=== PATIENT | female | born 1985 | race Caucasian/White ===

== ENCOUNTER 2019-12-08 04:56 | Inpatient (IN) | payer BC ==
--- NOTE | 2019-12-02 15:21 | PCM.LDHP ---
L&D History of Present Illness - General Date of Service: 12/02/19 Admit Problem/Dx: Admission Diagnosis/Problem Admission Diagnosis/Problem Source of Information: Patient History Limitations: Reports: No Limitations - History of Present Illness Introduction:: Marta Zhang is a 34-year-old -0-0-2 at 38 weeks 2 days (MANINDER 12/14/2019) by certain LMP of 03/09/2019 consistent with a 6-week ultrasound who presents for preoperative appointment for her scheduled section on 12/08/2019 when she will be 39 weeks 1 day. Patient has had ongoing abdominal distention throughout the and has been overall stable. She has had some decreased appetite since last evening with ongoing contractions overnight. She states that last evening on 12/01/2019 the contractions were stronger and occurring about 2 to 3/h and getting strong enough to the point of causing emesis. She denies any abnormal vaginal discharge or vaginal bleeding. Reports good movement. Present Illness Comments:: Marta Zhang is a 34-year-old -0-0-2 at 38 weeks 2 days (MANINDER 12/14/2019) by certain LMP of 03/09/2019 consistent with a 6-week ultrasound who presents for preoperative appointment for her scheduled section on 12/08/2019 when she will be 39 weeks 1 day. She has had routine care with Dr. Barrett starting at 6 weeks gestational age. Her has been complicated by significant abdominal distention with notation of significant distention starting at around 24 to 26 weeks gestational age. She was seen by Dr. Mark joseph, general surgeon, on 10/06/2019 without significant concerns at that time and thoughts that she was having a partial intestinal obstruction. She has been able to tolerate a regular diet without any significant nausea or vomiting with this suspected partial obstruction in place. She has had mild anemia with her most recent hemoglobin being 9.7 on 10/13/2019. She started taking iron supplementation at that time. She feels like this is helping with some of her shortness of breath and lightheaded episodes. Her is complicated by: * History of section x2 with previous colectomy and appendectomy. Patient desires repeat section and was advised to have section by her team that performed the colectomy. * Advanced maternal age with normal [place] genetic screening on 05/26/2019. The genetic screening test was low risk for trisomy 13, 18 and 21 without any sex chromosomal abnormalities. It was a female on testing. 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 Patient has had ongoing abdominal distention starting around 24 to 26 weeks ge stational age and was seen by Dr. Laird, general surgeon, who felt that there was a likely partial obstruction at that time. * Mild anemia with hemoglobin of 9.7 most recently on 10/13/2019. Patient taking iron supplementation for this. * Infant large for gestational age with infant weighing 2882 g (6 pounds 6 ounces) (91st percentile) on most recent growth ultrasound on 11/05/2019. No evidence of gestational diabetes with normal 1 hour glucose tolerance test. SALES AND MARKETING ADMINISTRATOR history G1: 05/27/2011, 39 weeks, section due to history of intestinal surgery, male , 7 pounds 6 ounces G2: 02/06/2013, 39 weeks, section due to history of intestinal surgery and previous section, female infant, 7 pounds 8 ounces G3: Current labs Blood type: O+ Antibody screen: Negative First trimester hematocrit/hemoglobin: 39.5%/13.2 on 05/19/2019 Platelets: 258 on 05/19/2019 Urine culture: Mixed brian suggestive of contamination Rubella status: Immune Hepatitis B surface antigen: Negative RPR: Negative HIV: Negative Gonorrhea: Negative Chlamydia: Negative Genetic testing: Normal [facility] genetic testing with low risk for trisomy 13, 18 and 21. Normal sex chromosomes and female infant on testing. Anatomy ultrasound: Normal anatomy ultrasound, anterior placenta, large for gestational age with weight in the 91st percentile on most recent ultrasound on 11/05/2019 One hour glucose tolerance test: 93 Second trimester hematocrit/hemoglobin: 33.9%/10.5 on 09/18/2019 Platelets: 271 on 09/18/2019 Third trimester hematocrit/hemoglobin: 31.8%/9.7 on 11/12/2019 Platelets: 230 on 11/12/2019 GBS status: Negative - Related Data Allergies/Adverse Reactions: Allergies Allergy/AdvReac Type Severity Reaction Status Date / Time bee pollen [Bee Pollen] Allergy Hives Verified 11/30/19 20:36 Home Medications: Home Meds Vits #93/Iron Fum/FA [ Formula Tablet] 11/30/19 [History] cephALEXin [Keflex] 250 mg PO 11/30/19 [History] Past Medical History Gastrointestinal History: Reports: Other (See Below) Other Gastrointestinal History: 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, significant abdominal distention during this SALES AND MARKETING ADMINISTRATOR History: Reports: : 3 Para: 2 - Past Surgical History GI Surgical History: Reports: Hernia, Abdominal, Other (See Below) (Total col ectomy and appendectomy) Female Surgical History: Reports: Breast Implant, Breast Reduction, Section (x2) Social & Family History - Tobacco Use Smoking Status *Q: Never Smoker Tobacco Use Within Last Twelve Months: No - Tobacco Core Measures Tobacco Use/Smoking Within Last 30 Days: No Smokeless Tobacco Use in Last 30 Days: No - Alcohol Use Alcohol Use History: No - Recreational Drug Use Recreational Drug Use: No Drug Use in Last 12 Months: No - Living Situation & Occupation Living situation: Reports: , with Spouse, with Family Occupation: Employed H&P Review of Systems - Review of Systems: Review Of Systems: See Below General: Denies: Fever, Chills, Malaise, Weakness, Fatigue HEENT: Denies: Headaches, Rhinitis, Post Nasal Drip, Sinus Congestion, Sore Throat, Visual Changes Pulmonary: Denies: Shortness of Breath, Wheezing, Pleuritic Chest Pain, Cough Cardiovascular: Denies: Chest Pain, Palpitations, Dyspnea on Exertion, Orthopnea Gastrointestinal: Reports: Diarrhea, Distension. Denies: Abdominal Pain, Constipation, Nausea, Vomiting Genitourinary: Denies: Dysuria, Frequency, Burning, Pain, Urgency Musculoskeletal: Reports: Back Pain Skin: Denies: Rash, Lesions Psychiatric: Denies: Depression, Anxiety Neurological: Denies: Headache, Syncope Hematologic/Lymphatic: Reports: Anemia L&D Exam - Exam Exam: See Below - OB Specific Fundal Height In cm: 38 Movement: Active Heart Tones: Present Heart Tones per Min: 130 - Schulte Score Schulte Score Cervix Position: Anterior Schulte Score Consistency: Soft Schulte Score Effacement: 51-70% (50%) Schulte Score Dilation: 1-2 cm (1 cm) Schulte Score Infant's Station: -3 Schulte Score Total: 7 - Exam General: Alert, Oriented HEENT: Conjunctiva Clear, EOMI Neck: Supple, Trachea Midline Lungs: Clear to Auscultation, Normal Respiratory Effort Cardiovascular: Regular Rate, Regular Rhythm GI/Abdominal Exam: Soft, Non-Tender, Distended, Other (Gravid). No: Guarding, Rigid, Rebound Rectal Exam: Hemorrhoids Genitourinary: Normal external exam Back Exam: Normal Inspection, Full Range of Motion Extremities: Normal Inspection, No Pedal Edema Skin: Warm, Dry, Intact Psychiatric: Alert, Normal Affect, Normal Mood - Problem List (1) 39 weeks gestation of SNOMED Code(s): 56767775 ICD Code: Z3A.39 - 39 WEEKS GESTATION OF Status: Acute (2) History of section SNOMED Code(s): 825694387 ICD Code: Z98.891 - HISTORY OF UTERINE SCAR FROM PREVIOUS SURGERY Status: Acute (3) Abdominal distension SNOMED Code(s): 60316588 ICD Code: R14.0 - ABDOMINAL DISTENSION (GASEOUS) Status: Acute (4) Advanced maternal age in multigravida SNOMED Code(s): 765993411 ICD Code: O09.529 - SUPERVISION OF ELDERLY MULTIGRAVIDA, UNSPECIFIED TRIMESTER Status: Acute (5) Anemia SNOMED Code(s): 914483989 ICD Code: D64.9 - ANEMIA, UNSPECIFIED Status: Acute Problem List Initiated/Reviewed/Updated: Yes Assessment/Plan Comment:: Admit to inpatient after section NST prior to section Place IV and have Lactated Ringer's at 125 ml/hr SCDs for DVT prophylaxis Nothing by mouth Activity as tolerated Plan for spinal injection for anesthesia CBC, RPR and type and screen prior to surgery Plans to breast-feed after delivery Plan for Ancef 2 g IV for antibiotic prophylaxis prior to surgery Leo Barrett M.D. 3:30 PM 12/02/2019
[2019-12-08] MEDS ORDERED: Sodium Chloride 0.9% 10 ML Syringe FLUSH PRN (05:00)
[2019-12-08] MEDS: Lactated Ringers 1,000 ML IV SCH ×2 (05:30→06:17)
[2019-12-08] MEDS ORDERED: Metoclopramide 10 MG/2 ML SDV ONE (06:11)
[2019-12-08] MEDS ORDERED: Citric Acid/Sodium Citrate Solution 30 ML Cup ONE (06:12)
[2019-12-08] MEDS ORDERED: Lactated Ringers 1,000 ML ONE ×2 (06:12→08:35)
[2019-12-08] MEDS ORDERED: Citric Acid/Sodium Citrate Solution 30 ML Cup PO ONE (06:30)
[2019-12-08] MEDS ORDERED: Metoclopramide 10 MG/2 ML SDV IVPUSH ONE (06:30)
[2019-12-08] MEDS ORDERED: ceFAZolin 2 GM in Premix Bag 1 BAG IV ONE (07:00)
[2019-12-08] MEDS ORDERED: Oxytocin/Lactated Ringers 10 UNIT/1,000 ML BAG IV SCH ×2 (07:00→10:07)
--- NOTE | 2019-12-08 07:08 | PCM.PREANE ---
Preanesthetic Assessment - Anesthesia/Transfusion/Family Hx Anesthesia History: Prior Anesthesia Without Reaction Family History of Anesthesia Reaction: No Transfusion History: No Prior Transfusion(s) - Review of Systems General: No Symptoms Pulmonary: No Symptoms Cardiovascular: No Symptoms Gastrointestinal: Other (uses tums during ) Neurological: No Symptoms Other: Reports: None - Physical Assessment NPO Status Date: 12/07/19 NPO Status Time: 22:30 Vital Signs: Last Vital Signs Temp 36.7 C 12/08/19 05:12 Pulse 103 H 12/08/19 05:12 Resp 15 12/08/19 05:12 BP 107/71 12/08/19 05:12 Pulse Ox 98 12/08/19 05:12 Height: 1.68 m Weight: 80.966 kg ASA Class: 2 Mental Status: Alert & Oriented x3 Airway Class: Mallampati = 2 Dentition: Reports: Normal Dentition Thyro-Mental Finger Breadths: 3 Mouth Opening Finger Breadths: 3 ROM/Head Extension: Full Lungs: Clear to Auscultation, Normal Respiratory Effort Cardiovascular: Regular Rate, Regular Rhythm - Lab Values: Laboratory Last Values WBC 7.07 K/mm3 (3.98-10.04) 12/08/19 05:19 RBC 4.06 M/mm3 (3.98-5.22) 12/08/19 05:19 Hgb 9.8 gm/dl (11.2-15.7) L 12/08/19 05:19 Hct 31.8 % (34.1-44.9) L 12/08/19 05:19 MCV 78.3 fl (79.4-94.8) L 12/08/19 05:19 MCH 24.1 pg (25.6-32.2) L 12/08/19 05:19 MCHC 30.8 g/dl (32.2-35.5) L 12/08/19 05:19 RDW Std Deviation 47.2 fL (36.4-46.3) H 12/08/19 05:19 Plt Count 213 K/mm3 (182-369) 12/08/19 05:19 MPV 11.7 fl (9.4-12.3) 12/08/19 05:19 Neut % (Auto) 65.9 % (34.0-71.1) 12/08/19 05:19 Lymph % (Auto) 24.3 % (19.3-51.7) 12/08/19 05:19 [place] % (Auto) 7.8 % (4.7-12.5) 12/08/19 05:19 Eos % (Auto) 1.0 (0.7-5.8) 12/08/19 05:19 Baso % (Auto) 0.3 % (0.1-1.2) 12/08/19 05:19 Neut # (Auto) 4.66 K/mm3 (1.56-6.13) 12/08/19 05:19 Lymph # (Auto) 1.72 K/mm3 (1.18-3.74) 12/08/19 05:19 [place] # (Auto) 0.55 K/mm3 (0.24-0.36) H 12/08/19 05:19 Eos # (Auto) 0.07 K/mm3 (0.04-0.36) 12/08/19 05:19 Baso # (Auto) 0.02 K/mm3 (0.01-0.08) 12/08/19 05:19 COVID-19 (HUGO) Negative (NEGATIVE) 12/08/19 05:20 - Allergies Allergies/Adverse Reactions: Allergies Allergy/AdvReac Type Severity Reaction Status Date / Time bee venom protein (honey bee) Allergy Swelling Verified 12/08/19 05:03 - Blood Blood Available: No Product(s) Available: None - Anesthesia Plan Pre-Op Medication Ordered: None - Acknowledgements Anesthesia Type Planned: Spinal Pt an Appropriate Candidate for the Planned Anesthesia: Yes Alternatives and Risks of Anesthesia Discussed w Pt/Guardian: Yes Pt/Guardian Understands and Agrees with Anesthesia Plan: Yes PreAnesthesia Questionnaire Gastrointestinal History: Reports: Other (See Below) Other Gastrointestinal History: 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, significant abdominal distention during this 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: Hematologic History: Reports: Anemia - Infectious Disease History Infectious Disease History: Reports: None - Past Surgical History GI Surgical History: Reports: Hernia, Abdominal, Other (See Below) Female Surgical History: Reports: Breast Implant, Breast Reduction, Section - SUBSTANCE USE Smoking Status *Q: Never Smoker Tobacco Use Within Last Twelve Months: No Recreational Drug Use History: No - HOME MEDS Home Medications: Home Meds Vits #93/Iron Fum/FA [ Formula Tablet] 11/30/19 [History] - CURRENT (IN HOUSE) MEDS Current Meds: Current Medications Cefazolin Sodium/Dextrose 2 gm (/ Premix) 50 mls @ 100 mls/hr IV ONETIME ONE Stop: 12/08/19 07:29 Oxytocin/Lactated Ringer's (Pitocin In Lr 10 Units/1,000 Ml) 10 unit in 1,000 mls @ 100 mls/hr IV ASDIRECTED CATY; Protocol Lactated Ringer's (Ringers, Lactated) 1,000 mls @ 125 mls/hr IV ASDIRECTED CATY Last Admin: 12/08/19 06:17 Dose: 900 mls/hr Documented by: Sodium Chloride (Saline Flush) 10 ml FLUSH ASDIRECTED PRN PRN Reason: Keep Vein Open Discontinued Medications Citric Acid/Sodium Citrate (Bicitra Solution) 30 ml PO ONETIME ONE Stop: 12/08/19 06:31 Last Admin: 12/08/19 06:56 Dose: 30 ml Documented by: Citric Acid/Sodium Citrate (Bicitra Solution) Confirm Administered Dose 30 ml .ROUTE .STK-MED ONE Stop: 12/08/19 06:13 Last Admin: 12/08/19 06:54 Dose: Not Given Documented by: Lactated Ringer's (Ringers, Lactated) Confirm Administered Dose 1,000 mls @ as directed .ROUTE .STK-MED ONE Stop: 12/08/19 06:13 Last Admin: 12/08/19 06:54 Dose: Not Given Documented by: Metoclopramide HCl (Reglan) 10 mg IVPUSH ONETIME ONE Stop: 12/08/19 06:31 Last Admin: 12/08/19 06:56 Dose: 10 mg Documented by: Metoclopramide HCl (Reglan) Confirm Administered Dose 10 mg .ROUTE .STK-MED ONE Stop: 12/08/19 06:12 Last Admin: 12/08/19 06:54 Dose: Not Given Documented by:
[2019-12-08] MEDS ORDERED: Ondansetron 4 MG/2 ML SDV ONE (07:11)
[2019-12-08] MEDS ORDERED: Morphine PF 1 MG/ML Amp ONE (07:11)
[2019-12-08] MEDS ORDERED: ceFAZolin 1 GM Vial ONE (07:11)
[2019-12-08] MEDS ORDERED: Oxytocin 10 Units/1 ML SDV ONE (07:11)
[2019-12-08] MEDS ORDERED: Bupivacaine 0.5% 30 ML SDV ONE (07:14)
[2019-12-08] MEDS ORDERED: Ketorolac 30 MG/ML SDV ONE (07:56)
[2019-12-08] MEDS ORDERED: fentaNYL 100 MCG/2 ML SDV IVPUSH PRN (08:48)
[2019-12-08] MEDS ORDERED: diphenhydrAMINE 50 MG/ML SDV IVPUSH PRN ×2 (08:48→10:07)
[2019-12-08] MEDS ORDERED: Ondansetron 4 MG/2 ML SDV IVPUSH PRN (08:48)
--- NOTE | 2019-12-08 09:05 | PCM.POSTAN ---
POST ANESTHESIA ASSESSMENT - MENTAL STATUS Mental Status: Alert, Oriented - VITAL SIGNS Vital Signs: Last Vital Signs Temp 36.7 C 12/08/19 05:12 Pulse 103 H 12/08/19 05:12 Resp 15 12/08/19 05:12 BP 107/71 12/08/19 05:12 Pulse Ox 98 12/08/19 05:12 - RESPIRATORY Respiratory Status: Respiratory Rate WNL, Airway Patent, O2 Saturation Stable - CARDIOVASCULAR CV Status: Pulse Rate WNL, Blood Pressure Stable - GASTROINTESTINAL GI Status: No Symptoms - PAIN Pain Score: 0 - POST OP HYDRATION Hydration Status: Adequate & Stable
[2019-12-08] MEDS ORDERED: Ondansetron 4 MG Tab.DIS PO PRN (10:07)
[2019-12-08] MEDS ORDERED: Dextrose 5%-Lactated Ringers 1,000 ML IV SCH (10:07)
[2019-12-08] MEDS ORDERED: Acetaminophen/oxyCODONE 325-5 MG Tab PO PRN (10:07)
[2019-12-08] MEDS ORDERED: Magnesium Hydroxide 400 MG/5 ML Susp 30 ML Cup PO PRN (10:07)
[2019-12-08] MEDS ORDERED: Naloxone 0.4 MG/ML SDV IVPUSH PRN (10:07)
[2019-12-08] MEDS ORDERED: ePHEDrine 50 MG/ML SDV IVPUSH PRN (10:07)
--- NOTE | 2019-12-08 10:07 | PCM.OPNOTE ---
- General Post-Op/Procedure Note Date of Surgery/Procedure: 12/08/19 Operative Procedure(s): Repeat section Findings: Live female infant delivered in vertex presentation at 08:21. Apgars of 8 and 9. weight of 3800 g (8 pounds 6.0 ounces). length of 21 inches. Grossly normal-appearing uterus, bilateral fallopian tubes and ovaries. Significantly distended visualized portions of the intestines. No adhesions to the uterus. Pre Op Diagnosis: 39 weeks gestational age, previous section x2, advanced maternal age and abdominal distention Post-Op Diagnosis: Same Anesthesia Technique: Spinal Primary Surgeon: Leo Barrett Anesthesia Provider: Princess Maynard Carbon Plant Grinder: Herb Hinton Carbon Plant Grinder: Mel Adames ([place] student) Reason Carbon Plant Grinder Was Necessary: Patient safety and reduction of morbidity and mortality Role of Carbon Plant Grinder: Retraction for visualization and assistance with extraction of during the section. Pathology: None Fluid Replacement, Intraop: 1,800 Output, Urine Amount: 125 EBL in mLs: 600 Complications: None Condition: Good Free Text/Narrative:: Intake & Output 12/07/19 12/08/19 12/08/19 22:59 06:59 14:59 Intake Total 300 Output Total 225 Balance 75 Procedure in Detail: The patient was seen in room #5 and the risks, benefits and complications were discussed with the patient. The patient desired to proceed with section and appropriate consents were reviewed. The patient was taken to operating room #1. A Time Out was held and the patient was identified using 2 identifiers and the procedure was confirmed. The patient was given spinal anesthesia and was placed in dorsal supine position with leftward tilt. She was given 2 g Ancef for antibiotic prophylaxis. Patient had a Rangel catheter placed without difficulty. The patient was prepped and draped in the usual sterile manner. The abdominal skin was tested and the spinal anesthesia was found to be adequate. The previous skin incision was marked and was injected with 0.5% marcaine for local anesthesia. A Pfannenstiel skin incision was made and carried down through the subcutaneous tissue to the fascia with the scapel. The fascia was nicked in the midline using a scalpel and the fascial incision was extended transversely with Ramon scissors. The inferior aspect of the fascia was grasped with Jani clamps and tented upwards. The fascia was from the underlying rectus muscle sharply with Ramon scissors. Attention was then turned to the superior aspect of the fascia and was grasped using Jani clamps and tented upwards. The underlying rectus muscle was dissected off sharply with Ramon scissors. The peritoneum was identified and entered sharply after careful dissection to ensure that there was no underlying bowel during entry. The utero-vesical peritoneal reflection was identified and the peritoneum was incised with [place] scissors and transversely extended. The bladder blade was inserted and the lower uterine segment was identified. A low transverse uterine incision was made sharply with a scalpel and extended laterally bluntly. The 's head was brought to the uterine incision, the bladder blade was removed and the infant was attempted to be delivered. Initial attempts were unsuccessful and a mushroom cup vacuum extractor was applied to the 's head. Suction was applied to approximately 550 mmHg and gentle traction was applied. There were 2 pop offs. At this time the infant's head was brought down to a low enough level that it was able to be delivered with out use of the vacuum extractor. The vacuum extractor was applied for a total of 30 seconds. On 12/08/2019 a live female infant was delivered in vertex position at 08:21, wt of 3800 grams, 8 pounds and 6.0 ounces. APGARS were 8 & 9. The nose and mouth were suctioned with bulb suction, the cord was doubly clamped and cut and was transferred to the awaiting endless track vehicle mechanic. The placenta was removed intact and appeared normal with a three vessel cord. The uterus was exteriorized and the uterine cavity was cleaned using lap sponges. The hysterotomy was closed with a running locked suture of 0-Vicryl. A second suture of 0-Vicryl was used to imbricate the hysterotomy. The hysterotomy was hemostatic. The uterus, tubes and ovaries appeared overall normal without any adhesions from the intestines to the uterus. The uterus was then returned into the abdominal cavity. The hysterotomy was noted to remain hemostatic inside the abdominal cavity. The fascia was noted to be hemostatic and the fascia was then reapproximated with running sutures of 0 PDS. The skin was reapproximated using 4-0 Monocryl and Steri-strips were applied over the incision. Instrument, sponge, and needle counts were correct prior to the abdominal closure and at the conclusion of the case.
[2019-12-08] MEDS: Acetaminophen/oxyCODONE 325-5 MG Tab PO PRN (11:01)
[2019-12-08] MEDS: Ketorolac 30 MG/ML SDV IVPUSH SCH ×2 (14:56→23:10)
[2019-12-09] MEDS: Docusate Sodium 100 MG Cap PO SCH ×4 (01:58→21:11)
[2019-12-09] MEDS ORDERED: Ketorolac 30 MG/ML SDV ONE (07:56)
[2019-12-09] MEDS: Prenatal Multivitamin with Calcium/Folic Acid/Iron Tab PO SCH (08:03)
[2019-12-09] MEDS: Ketorolac 30 MG/ML SDV IVPUSH SCH (08:03)
[2019-12-09] MEDS: Ferrous Sulfate 324 MG Tab.EC PO SCH (08:04)
--- NOTE | 2019-12-09 10:37 | PCM.SN.2 ---
- Free Text/Narrative Note: Post Operative Progress Note POD #1 Subjective: Doing well overall. Ambulating without difficulty. Lochia minimal. Rangel removed this morning and urinating without difficulty. Not passing flatus at this time but feels like her intestines are moving more. Reports that she is feeling and seeing more movement of her intestines across the upper abdomen. Does have some occasional right upper quadrant pain and tenderness that feels like postop gas pain after her laparoscopy. It will improve with massage. Tolerating regular diet without nausea or vomiting. Pain controlled with oral medications. Breast-feeding with minimal difficulty. Objective: Vitals: Vital Signs - 24 hr 12/08/19 12/08/19 12/08/19 11:01 11:32 11:36 Temperature Pulse, 81 92 89 Peripheral Respiratory Rate Blood Pressure 108/76 84/67 L 123/74 O2 Sat by Pulse 99 98 99 Oximetry 12/08/19 12/08/19 12/08/19 12:02 12:03 13:01 Temperature 36.6 C 36.6 C Pulse, 93 96 Peripheral Respiratory 16 14 Rate Blood Pressure 96/62 96/62 107/69 O2 Sat by Pulse 99 98 Oximetry 12/08/19 12/08/19 12/08/19 13:02 14:01 14:32 Temperature 36.6 C Pulse, 87 85 86 Peripheral Respiratory 14 Rate Blood Pressure 107/69 99/64 O2 Sat by Pulse 98 98 100 Oximetry 12/08/19 12/08/19 12/08/19 16:01 16:02 19:37 Temperature 36.6 C Pulse, 83 89 87 Peripheral Respiratory 14 Rate Blood Pressure 111/71 O2 Sat by Pulse 98 100 98 Oximetry 12/08/19 12/09/19 12/09/19 19:39 00:00 00:01 Temperature 36.7 C 36.7 C Pulse, 83 91 91 Peripheral Respiratory 16 16 Rate Blood Pressure 104/72 106/70 O2 Sat by Pulse 99 98 98 Oximetry 12/09/19 12/09/19 03:04 03:05 Temperature 36.6 C Pulse, 82 84 Peripheral Respiratory 18 Rate Blood Pressure 105/74 O2 Sat by Pulse 100 100 Oximetry Physical Exam General: Alert and oriented, no acute distress Lungs: Clear to auscultation bilaterally Heart: Regular rate and rhythm Abdomen: Soft, minimal appropriate tenderness, moderately distended, fundus midline, nontender and at the umbilicus Incision: Clean, dry and intact, no erythema, bleeding or drainage with Steri- Strips in place Extremities: No edema Labs: Laboratory Tests 12/08/19 12/08/19 12/08/19 Range/Units 05:19 05:19 05:19 WBC 7.07 (3.98-10.04) K/mm3 RBC 4.06 (3.98-5.22) M/mm3 Hgb 9.8 L (11.2-15.7) gm/dl Hct 31.8 L (34.1-44.9) % MCV 78.3 L (79.4-94.8) fl MCH 24.1 L (25.6-32.2) pg MCHC 30.8 L (32.2-35.5) g/dl RDW Std Deviation 47.2 H (36.4-46.3) fL Plt Count 213 (182-369) K/mm3 MPV 11.7 (9.4-12.3) fl Neut % (Auto) 65.9 (34.0-71.1) % Lymph % (Auto) 24.3 (19.3-51.7) % [place] % (Auto) 7.8 (4.7-12.5) % Eos % (Auto) 1.0 (0.7-5.8) Baso % (Auto) 0.3 (0.1-1.2) % Neut # (Auto) 4.66 (1.56-6.13) K/mm3 Lymph # (Auto) 1.72 (1.18-3.74) K/mm3 [place] # (Auto) 0.55 H (0.24-0.36) K/mm3 Eos # (Auto) 0.07 (0.04-0.36) K/mm3 Baso # (Auto) 0.02 (0.01-0.08) K/mm3 Manual Slide Review RPR Non-reactive (NONREACTIVE) COVID-19 (HUGO) (NEGATIVE) Blood Type O POSITIVE Gel Antibody Screen Negative 12/08/19 12/08/19 12/09/19 Range/Units 05:20 15:10 06:15 WBC 11.04 H 9.73 (3.98-10.04) K/mm3 RBC 3.77 L 3.68 L (3.98-5.22) M/mm3 Hgb 8.9 L 8.7 L (11.2-15.7) gm/dl Hct 29.7 L 29.2 L (34.1-44.9) % MCV 78.8 L 79.3 L (79.4-94.8) fl MCH 23.6 L 23.6 L (25.6-32.2) pg MCHC 30.0 L 29.8 L (32.2-35.5) g/dl RDW Std Deviation 47.2 H 47.1 H (36.4-46.3) fL Plt Count 201 195 (182-369) K/mm3 MPV 11.9 11.5 (9.4-12.3) fl Neut % (Auto) 80.6 H 79.1 H (34.0-71.1) % Lymph % (Auto) 11.1 L 13.1 L (19.3-51.7) % [place] % (Auto) 7.2 6.5 (4.7-12.5) % Eos % (Auto) 0.5 L 0.7 (0.7-5.8) Baso % (Auto) 0.1 0.2 (0.1-1.2) % Neut # (Auto) 8.91 H 7.70 H (1.56-6.13) K/mm3 Lymph # (Auto) 1.23 1.27 (1.18-3.74) K/mm3 [place] # (Auto) 0.79 H 0.63 H (0.24-0.36) K/mm3 Eos # (Auto) 0.05 0.07 (0.04-0.36) K/mm3 Baso # (Auto) 0.01 0.02 (0.01-0.08) K/mm3 Manual Slide Review Abnormal smear RPR (NONREACTIVE) COVID-19 (HUGO) Negative (NEGATIVE) Blood Type Gel Antibody Screen ASSESSMENT: 34-year-old female -0-0-3 s/p repeat section POD #1 for history of section, complicated by history of section x2, advanced maternal age in multigravida, anemia and abdominal distention PLAN: Doing well Breast-feeding with minimal difficulty. Assist as needed Incision healing well. Continue to keep clean and dry. Lochia minimal. Continue to monitor for appropriate lochia. Continue routine post-operative care Continue simethicone and Colace for bowel motility and to help with gas pain and distention Continue vitamin and iron supplementation once daily with anemia with hemoglobin of 8.7 this morning. Do not feel that patient will need blood transfusion at this time. Anticipate discharge home tomorrow if she is able to pass flatus and meets other postoperative milestones Leo Barrett MD 10:36 AM 12/09/2019
[2019-12-09] MEDS: Acetaminophen 325 MG Tab PO PRN (10:52)
[2019-12-09] MEDS: Simethicone 80 MG Tab.Chew PO PRN (13:10)
--- NOTE | 2019-12-09 13:18 | PCM48HPAN ---
Post Anesthesia Note - EVALUATION WITHIN 48HRS OF ANESTHETIC Vital Signs in Normal Range: Yes Patient Participated in Evaluation: Yes Respiratory Function Stable: Yes Airway Patent: Yes Cardiovascular Function Stable: Yes Hydration Status Stable: Yes Pain Control Satisfactory: Yes Nausea and Vomiting Control Satisfactory: Yes Mental Status Recovered: Yes Vital Signs: Last Vital Signs Temp 36.8 C 12/09/19 08:04 Pulse 92 12/09/19 08:04 Resp 18 12/09/19 03:04 BP 102/70 12/09/19 08:04 Pulse Ox 98 12/09/19 08:04
[2019-12-09] MEDS: Acetaminophen/oxyCODONE 325-5 MG Tab PO PRN (15:34)
[2019-12-09] MEDS: Ibuprofen 600 MG Tab PO PRN (20:26)
[2019-12-10] MEDS: Acetaminophen 325 MG Tab PO PRN ×2 (00:54→08:52)
[2019-12-10] MEDS: Ibuprofen 600 MG Tab PO PRN (04:55)
[2019-12-10] MEDS: Simethicone 80 MG Tab.Chew PO PRN (06:02)
--- NOTE | 2019-12-10 08:23 | PCM.SN.2 ---
- Free Text/Narrative Note: Post Operative Progress Note POD #2 Subjective: Doing well overall. Ambulating without difficulty. Lochia minimal. Voiding without difficulty. Reports that she is passing flatus without difficulty. Feels like she is having increased rectal pressure like she is about to have a bowel movement but has not passed any stool at this time. Tolerating regular diet without nausea or vomiting. Pain controlled with oral medications and used only 1 Percocet last evening to get on top of her pain. She has been using Tylenol and ibuprofen throughout the evening and this morning to control her pain and this has been working well for her. Breast-feeding with minimal difficulty. Objective: Vitals: Vital Signs - 24 hr 12/08/12/09/19 12/09/19 15:28 15:29 19:40 Temperature 36.8 C 36.4 C Pulse, 86 85 92 Peripheral Respiratory 15 16 Rate Blood Pressure 115/68 105/72 O2 Sat by Pulse 100 100 100 Oximetry 12/10/19 02:33 Temperature 37.0 C Pulse, Peripheral Respiratory 16 Rate Blood Pressure 100/65 O2 Sat by Pulse 96 Oximetry Physical Exam General: Alert and oriented, no acute distress Lungs: Clear to auscultation bilaterally Heart: Regular rate and rhythm Abdomen: Soft, minimal appropriate tenderness, slightly decreased distention from previous day, positive bowel sounds that are more active than yesterday fundus midline, nontender and 1 fingerbreadth below the umbilicus Incision: Clean, dry and intact, no erythema, bleeding or drainage with Steri- Strips in place Extremities: No edema ASSESSMENT: 34-year-old female -0-0-3 s/p repeat section POD #2 for history of section, complicated by history of section x2, advanced maternal age in multigravida, anemia and abdominal distention PLAN: Doing well Breast-feeding with minimal difficulty. Assist as needed Incision healing well. Continue to keep clean and dry. Lochia minimal. Continue to monitor for appropriate lochia. Continue routine post-operative care Continue simethicone and Colace for bowel motility and to help with gas pain and distention Continue vitamin and iron supplementation once daily with anemia with hemoglobin of 8.7 on POD #1. Discharge home today Leo Barrett MD 8:19 AM 12/10/2019
--- NOTE | 2019-12-10 08:26 | PCM.DCSUM1 ---
Discharge Summary - Hospital Course Free Text/Narrative:: - General Post-Op/Procedure Note Date of Surgery/Procedure: 12/08/19 Operative Procedure(s): Repeat section Findings: Live female delivered in vertex presentation at 08:21. Apgars of 8 and 9. weight of 3800 g (8 pounds 6.0 ounces). length of 21 inches. Grossly normal-appearing uterus, bilateral fallopian tubes and ovaries. Significantly distended visualized portions of the intestines. No adhesions to the uterus. Pre Op Diagnosis: 39 weeks gestational age, previous section x2, advanced maternal age and abdominal distention Post-Op Diagnosis: Same Anesthesia Technique: Spinal Primary Surgeon: Leo Barrett Anesthesia Provider: Princess Maynard Bargeman: Herb Hinton Bargeman: Mel Adames ([place] student) Reason Bargeman Was Necessary: Patient safety and reduction of morbidity and mortality Role of Bargeman: Retraction for visualization and assistance with extraction of during the section. Pathology: None Fluid Replacement, Intraop: 1,800 Output, Urine Amount: 125 EBL in mLs: 600 Complications: None Condition: Good Free Text/Narrative:: Intake & Output 12/07/19 12/08/19 12/08/19 22:59 06:59 14:59 Intake Total 300 Output Total 225 Balance 75 Procedure in Detail: The patient was seen in room #5 and the risks, benefits and complications were discussed with the patient. The patient desired to proceed with section and appropriate consents were reviewed. The patient was taken to operating room #1. A Time Out was held and the patient was identified using 2 identifiers and the procedure was confirmed. The patient was given spinal anesthesia and was placed in dorsal supine position with leftward tilt. She was given 2 g Ancef for antibiotic prophylaxis. Patient had a Rangel catheter placed without difficulty. The patient was prepped and draped in the usual sterile manner. The abdominal skin was tested and the spinal anesthesia was found to be adequate. The previous skin incision was marked and was injected with 0.5% marcaine for local anesthesia. A Pfannenstiel skin incision was made and carried down through the subcutaneous tissue to the fascia with the scapel. The fascia was nicked in the midline using a scalpel and the fascial incision was extended transversely with Ramon scissors. The inferior aspect of the fascia was grasped with Jani clamps and tented upwards. The fascia was from the underlying rectus muscle sharply with Ramon scissors. Attention was then turned to the superior aspect of the fascia and was grasped using Jani clamps and tented upwards. The underlying rectus muscle was dissected off sharply with Ramon scissors. The peritoneum was identified and entered sharply after careful dissection to ensure that there was no underlying bowel during entry. The utero-vesical peritoneal reflection was identified and the peritoneum was incised with Metzenabaum scissors and transve rsely extended. The bladder blade was inserted and the lower uterine segment was identified. A low transverse uterine incision was made sharply with a scalpel and extended laterally bluntly. The 's head was brought to the uterine incision, the bladder blade was removed and the infant was attempted to be delivered. Initial attempts were unsuccessful and a mushroom cup vacuum extractor was applied to the 's head. Suction was applied to approximately 550 mmHg and gentle traction was applied. There were 2 pop offs. At this time the infant's head was brought down to a low enough level that it was able to be delivered with out use of the vacuum extractor. The vacuum extractor was applied for a total of 30 seconds. On 12/08/2019 a live female was delivered in vertex position at 08:21, wt of 3800 grams, 8 pounds and 6.0 ounces. APGARS were 8 & 9. The nose and mouth were suctioned with bulb suction, the cord was doubly clamped and cut and infant was transferred to the awaiting sewing techniques demonstrator. The placenta was removed intact and appeared normal with a three vessel cord. The uterus was exteriorized and the uterine cavity was cleaned using lap sponges. The hysterotomy was closed with a running locked suture of 0-Vicryl. A second suture of 0-Vicryl was used to imbricate the hysterotomy. The hysterotomy was hemostatic. The uterus, tubes and ovaries appeared overall normal without any adhesions from the intestines to the uterus. The uterus was then returned into the abdominal cavity. The hysterotomy was noted to remain hemostatic inside the abdominal cavity. The fascia was noted to be hemostatic and the fascia was then reapproximated with running sutures of 0 PDS. The skin was reapproximated using 4-0 Monocryl and Steri-strips were applied over the incision. Instrument, sponge, and needle counts were correct prior to the abdominal closure and at the conclusion of the case. HPI Initial Comments: - General Post-Op/Procedure Note Date of Surgery/Procedure: 12/08/19 Operative Procedure(s): Repeat section Findings: Live female delivered in vertex presentation at 08:21. Apgars of 8 and 9. weight of 3800 g (8 pounds 6.0 ounces). length of 21 inches. Grossly normal-appearing uterus, bilateral fallopian tubes and ovaries. Significantly distended visualized portions of the intestines. No adhesions to the uterus. Pre Op Diagnosis: 39 weeks gestational age, previous section x2, advanced maternal age and abdominal distention Post-Op Diagnosis: Same Anesthesia Technique: Spinal Primary Surgeon: Leo Barrett Anesthesia Provider: Princess Maynard Bargeman: Herb Hinton Bargeman: Mel Adames (PA student) Reason Bargeman Was Necessary: Patient safety and reduction of morbidity and mortality Role of Bargeman: Retraction for visualization and assistance with extraction of during the section. Pathology: None Fluid Replacement, Intraop: 1,800 Output, Urine Amount: 125 EBL in mLs: 600 Complications: None Condition: Good Free Text/Narrative:: Intake & Output 12/07/19 12/08/19 12/08/19 22:59 06:59 14:59 Intake Total 300 Output Total 225 Balance 75 Procedure in Detail: The patient was seen in room #5 and the risks, benefits and complications were discussed with the patient. The patient desired to proceed with section and appropriate consents were reviewed. The patient was taken to operating room #1. A Time Out was held and the patient was identified using 2 identifiers and the procedure was confirmed. The patient was given spinal anesthesia and was placed in dorsal supine position with leftward tilt. She was given 2 g Ancef for antibiotic prophylaxis. Patient had a Rangel catheter placed without difficulty. The patient was prepped and draped in the usual sterile manner. The abdominal skin was tested and the spinal anesthesia was found to be adequate. The previous skin incision was marked and was injected with 0.5% marcaine for local anesthesia. A Pfannenstiel skin incision was made and carried down through the subcutaneous tissue to the fascia with the scapel. The fascia was nicked in the midline using a scalpel and the fascial incision was extended transversely with Ramon scissors. The inferior aspect of the fascia was grasped with Jani clamps and tented upwards. The fascia was from the underlying rectus muscle sharply with Ramon scissors. Attention was then turned to the superior aspect of the fascia and was grasped using Jani clamps and tented upwards. The underlying rectus muscle was dissected off sharply with Ramon scissors. The peritoneum was i dentified and entered sharply after careful dissection to ensure that there was no underlying bowel during entry. The utero-vesical peritoneal reflection was identified and the peritoneum was incised with Metzenabaum scissors and transversely extended. The bladder blade was inserted and the lower uterine segment was identified. A low transverse uterine incision was made sharply with a scalpel and extended laterally bluntly. The infant's head was brought to the uterine incision, the bladder blade was removed and the was attempted to be delivered. Initial attempts were unsuccessful and a mushroom cup vacuum extractor was applied to the infant's head. Suction was applied to approximately 550 mmHg and gentle traction was applied. There were 2 pop offs. At this time the infant's head was brought down to a low enough level that it was able to be delivered with out use of the vacuum extractor. The vacuum extractor was applied for a total of 30 seconds. On 12/08/2019 a live female was delivered in vertex position at 08:21, wt of 3800 grams, 8 pounds and 6.0 ounces. APGARS were 8 & 9. The nose and mouth were suctioned with bulb suction, the cord was doubly clamped and cut and infant was transferred to the awaiting sewing techniques demonstrator. The placenta was removed intact and appeared normal with a three vessel cord. The uterus was exteriorized and the uterine cavity was cleaned using lap sponges. The hysterotomy was closed with a running locked suture of 0-Vicryl. A second suture of 0-Vicryl was used to imbricate the hysterotomy. The hysterotomy was hemostatic. The uterus, tubes and ovaries appeared overall normal without any adhesions from the intestines to the uterus. The uterus was then returned into the abdominal cavity. The hysterotomy was noted to remain hemostatic inside the abdominal cavity. The fascia was noted to be hemostatic and the fascia was then reapproximated with running sutures of 0 PDS. The skin was reapproximated using 4-0 Monocryl and Steri-strips were applied over the incision. Instrument, sponge, and needle counts were correct prior to the abdominal closure and at the conclusion of the case. Brief History: - General Post-Op/Procedure Note. Date of Surgery/Procedure: 12/08/19. Operative Procedure(s): Repeat section. Findings: Live female infant delivered in vertex presentation at 08:21. Apgars of 8 and 9. weight of 3800 g (8 pounds 6.0 ounces). length of 21 inches. Grossly normal-appearing uterus, bilateral fallopian tubes and ovaries. Significantly distended visualized portions of the intestines. No adhesions to the uterus. Pre Op Diagnosis: 39 weeks gestational age, previous section x2, advanced maternal age and abdominal distention. Post-Op Diagnosis: Same. Anesthesia Technique: Spinal. Primary Surgeon: Leo Barrett. Anesthesia Provider: Princess Maynard. Bargeman: Herb Hinton. Bargeman: Mel Adames (PA student). Reason Bargeman Was Necessary: Patient safety and reduction of morbidity and mortality. Role of Bargeman: Retraction for visualization and assistance with extraction of during the secti on. Pathology: None. Fluid Replacement, Intraop: 1,800. Output, Urine Amount: 125. EBL in mLs: 600. Complications: None. Condition: Good. Free Text/Narrative:: Intake & Output. 12/07/2007/07/2007. [id number]. Intake [id number]. Output [id number]. [id number]. Procedure in Detail: The patient was seen in room #5 and the risks, benefits and complications were discussed with the patient. The patient desired to proceed with section and appropriate consents were reviewed. The patient was taken to operating room #1. A Time Out was held and the patient was identified using 2 identifiers and the procedure was confirmed. The patient was given spinal anesthesia and was placed in dorsal supine position with leftward tilt. She was given 2 g Ancef for antibiotic prophylaxis. Patient had a Rangel catheter placed without difficulty. The patient was prepped and draped in the usual sterile manner. The abdominal skin was tested and the spinal anesthesia was found to be adequate. The previous skin incision was marked and was injected with 0.5% marcaine for local anesthesia. A Pfannenstiel skin incision was made and carried down through the subcutaneous tissue to the fascia with the scapel. The fascia was nicked in the midline using a scalpel and the fascial incision was extended transversely with Ramon scissors. The inferior aspect of the fascia was grasped with Jani clamps and tented upwards. The fascia was from the underlying rectus muscle sharply with Ramon scissors. Attention was then turned to the superior aspect of the fascia and was grasped using Jani clamps and tented upwards. The underlying rectus muscle was dissected off sharply with Ramon scissors. The peritoneum was identified and entered sharply after careful dissection to ensure that there was no underlying bowel during entry. The utero-vesical peritoneal reflection was identified and the peritoneum was incised with Metzenabaum scissors and transversely extended. The bladder blade was inserted and the lower uterine segment was identified. A low transverse uterine incision was made sharply with a scalpel and extended laterally bluntly. The 's head was brought to the uterine incision, the bladder blade was removed and the infant was attempted to be delivered. Initial attempts were unsuccessful and a mushroom cup vacuum extractor was applied to the infant's head. Suction was applied to approximately 550 mmHg and gentle traction was applied. There were 2 pop offs. At this time the infant's head was brought down to a low enough level that it was able to be delivered with out use of the vacuum extractor. The vacuum extractor was applied for a total of 30 seconds. On 12/08/2019 a live female infant was delivered in vertex position at 08:21, wt of 3800 grams, 8 pounds and 6.0 ounces. APGARS were 8 & 9. The nose and mouth were suctioned with bulb suction, the cord was doubly clamped and cut and infant was transferred to the awaiting sewing techniques demonstrator. The placenta was removed intact and appeared normal with a three vessel cord. The uterus was exteriorized and the uterine cavity was cleaned using lap sponges. The hysterotomy was closed with a running locked suture of 0-Vicryl. A second suture of 0-Vicryl was used to imbricate the hysterotomy. The hysterotomy was hemostatic. The uterus, tubes and ovaries appeared overall normal without any adhesions from the intestines to the uterus. The uterus was then returned into the abdominal cavity. The hysterotomy was noted to remain hemostatic inside the abdominal cavity. The fascia was noted to be hemostatic and the fascia was then reapproximated with running sutures of 0 PDS. The skin was reapproximated using 4-0 Monocryl and Steri-strips were applied over the incision. Instrument, sponge, and needle counts were correct prior to the abdominal closure and at the conclusion of the case. Diagnosis: Stroke: No - Discharge Data Discharge Date: 12/10/19 Discharge Disposition: Home, Self-Care 01 Condition: Good - Referral to Home Health Primary Care Physician: Leo Barrett MD - Discharge Diagnosis/Problem(s) (1) 39 weeks gestation of SNOMED Code(s): 40956581 ICD Code: Z3A.39 - 39 WEEKS GESTATION OF Status: Acute Current Visit: No (2) History of section SNOMED Code(s): 746007295 ICD Code: Z98.891 - HISTORY OF UTERINE SCAR FROM PREVIOUS SURGERY Status: Acute Current Visit: No (3) Abdominal distension SNOMED Code(s): 44161239 ICD Code: R14.0 - ABDOMINAL DISTENSION (GASEOUS) Status: Acute Current Visit: No (4) Advanced maternal age in multigravida SNOMED Code(s): 484534912 ICD Code: O09.529 - SUPERVISION OF ELDERLY MULTIGRAVIDA, UNSPECIFIED TRIMESTER Status: Acute Current Visit: No (5) Anemia SNOMED Code(s): 688637989 ICD Code: D64.9 - ANEMIA, UNSPECIFIED Status: Acute Current Visit: No (6) delivery delivered SNOMED Code(s): 940485958 ICD Code: O82 - ENCOUNTER FOR DELIVERY WITHOUT INDICATION Status: Acute Current Visit: Yes - Patient Summary/Data Operative Procedure(s) Performed: Repeat section Complications: None Consults: None Hospital Course: Marta Zhang was admitted for scheduled repeat section. She was taken back to the OR and given spinal injection for anesthesia. She was given Ancef 2 g IV for antibiotic prophylaxis. She was prepped and draped in the normal fashion. On 12/08/2019 she had a delivery of a live female at 08:21. Apgars of 8 and 9. Weight of 3800 g (8 pounds 6.0 ounces). She was closed in a normal fashion. There were no complications with the procedure. Please see the operative report for full details. Her post operative course was uneventful. Her pain was well controlled and she had minimal lochia. She was ambulating, tolerating a regular diet and voiding normally. She was passing flatus and has not had a bowel movement. She was breast feeding without difficulty. She was afebrile and her hematocrit was 29.2 on POD #1. She desired to be discharged home on the morning of POD #2. Her blood type is O+. - Patient Instructions Diet: Regular Diet as Tolerated Activity: Apply Ice, As Tolerated, No Lifting Over 20 Pounds Activity, Other: Nothing in the vagina for 6 weeks Driving: Do Not Drive (While having significant pain or while taking narcotic pain medications) Showering/Bathing: May Shower Wound/Incision Care: Keep Operative Site/Wound Site Clean and Dry Notify Provider of: Fever, Increased Pain, Swelling and Redness, Drainage, Nausea and/or Vomiting Other/Special Instructions: Please contact your physician's office if you note any bleeding or pus coming from the abdominal incision. Please contact your physician's office if you have heavy vaginal bleeding enough to soak a pad in less than an hour for several hours. Monitor for any signs of an infection in the breasts with severe pain or redness of the breast. - Discharge Plan *PRESCRIPTION DRUG MONITORING PROGRAM REVIEWED*: Not Applicable *COPY OF PRESCRIPTION DRUG MONITORING REPORT IN PATIENT SUMIT: Not Applicable Home Medications: Home Meds Vits #93/Iron Fum/FA [ Formula Tablet] 11/30/19 [History] Acetaminophen [Tylenol] 650 mg PO Q6H PRN tablet 12/10/19 [Rx] Docusate Sodium [Colace] 100 mg PO Q12H cap 12/10/19 [Rx] Ferrous Sulfate 324 mg PO WITHBREAKFAST tab.ec 12/10/19 [Rx] Ibuprofen [Motrin] 600 mg PO Q6H PRN tablet 12/10/19 [Rx] Simethicone 160 mg PO QID PRN tab.chew 12/10/19 [Rx] Patient Handouts: Care After Delivery Referrals: Leo Barrett MD [Primary Care Provider] - (Follow-up in 2 weeks for routine postoperative visit or earlier as needed.) - Discharge Summary/Plan Comment DC Time >30 min.: No - Patient Data Vitals - Most Recent: Last Vital Signs Temp 37.0 C 12/10/19 02:33 Pulse 92 12/09/19 19:40 Resp 16 12/10/19 02:33 BP 100/65 12/10/19 02:33 Pulse Ox 96 12/10/19 02:33 Weight - Most Recent: 80.966 kg I&O - Last 24 hours: Intake & Output 12/09/19 12/10/19 12/10/19 22:59 06:59 14:59 Intake Total 1060 Balance 1060 Med Orders - Current: Current Medications Acetaminophen (Tylenol) 650 mg PO Q6H PRN PRN Reason: Pain (mild 1-3) Last Admin: 12/10/19 00:54 Dose: 650 mg Documented by: Diphenhydramine HCl (Benadryl) 25 mg IVPUSH Q6H PRN PRN Reason: Itching or Nausea Docusate Sodium (Colace) 100 mg PO Q12H CATY Last Admin: 12/09/19 21:11 Dose: 100 mg Documented by: Ephedrine Sulfate (Ephedrine Sulfate) 5 mg IVPUSH SEECOMMENT PRN PRN Reason: Other Ferrous Sulfate (Ferrous Sulfate) 324 mg PO WITHBREAKFAST [facility] Last Admin: 12/09/19 08:04 Dose: 324 mg Documented by: Oxytocin/Lactated Ringer's (Pitocin In Lr 10 Units/1,000 Ml) 10 unit in 1,000 mls @ 100 mls/hr IV .CONTINUOUS CATY Ibuprofen (Motrin) 600 mg PO Q6H PRN PRN Reason: mild pain or fever Last Admin: 12/10/19 04:55 Dose: 600 mg Documented by: Magnesium Hydroxide (Milk Of Magnesia) 30 ml PO BEDTIME PRN PRN Reason: Constipation Naloxone HCl (Narcan) 0.1 mg IVPUSH SEECOMMENT PRN PRN Reason: Respiratory Depression Ondansetron HCl (Zofran Odt) 4 mg PO Q4H PRN PRN Reason: Nausea/Vomiting Oxycodone/Acetaminophen (Percocet 325-5 Mg) 1 tab PO Q6H PRN PRN Reason: Pain (moderate 4-6) Last Admin: 12/09/19 15:34 Dose: 1 tab Documented by: Oxycodone/Acetaminophen (Percocet 325-5 Mg) 2 tab PO Q6H PRN PRN Reason: Pain (severe 7-10) Prenat Multivit/[place]/Iron/Folic Ac ( Plus Iron) 1 each PO DAILY CATY Last Admin: 12/09/19 08:03 Dose: 1 each Documented by: Simethicone (Simethicone) 160 mg PO QID PRN PRN Reason: Gas Last Admin: 12/10/19 06:02 Dose: 160 mg Documented by: Discontinued Medications Bupivacaine HCl (Marcaine 0.5%) Confirm Administered Dose 30 ml .ROUTE .STK-MED ONE Stop: 12/08/19 07:15 Last Admin: 12/08/19 08:08 Dose: 30 ml Documented by: Cefazolin Sodium (Ancef) Confirm Administered Dose 2 gm .ROUTE .STK-MED ONE Stop: 12/08/19 07:12 Citric Acid/Sodium Citrate (Bicitra Solution) 30 ml PO ONETIME ONE Stop: 12/08/19 06:31 Last Admin: 12/08/19 06:56 Dose: 30 ml Documented by: Citric Acid/Sodium Citrate (Bicitra Solution) Confirm Administered Dose 30 ml .ROUTE .STK-MED ONE Stop: 12/08/19 06:13 Last Admin: 12/08/19 06:54 Dose: Not Given Documented by: Diphenhydramine HCl (Benadryl) 25 mg IVPUSH Q6H PRN PRN Reason: itching Fentanyl (Sublimaze) 50 mcg IVPUSH Q5M PRN PRN Reason: pain Cefazolin Sodium/Dextrose 2 gm (/ Premix) 50 mls @ 100 mls/hr IV ONETIME ONE Stop: 12/08/19 07:29 Oxytocin/Lactated Ringer's (Pitocin In Lr 10 Units/1,000 Ml) 10 unit in 1,000 mls @ 100 mls/hr IV ASDIRECTED CATY; Protocol Lactated Ringer's (Ringers, Lactated) 1,000 mls @ 125 mls/hr IV ASDIRECTED CATY Last Admin: 12/08/19 06:17 Dose: 900 mls/hr Documented by: Lactated Ringer's (Ringers, Lactated) Confirm Administered Dose 1,000 mls @ as directed .ROUTE .STK-MED ONE Stop: 12/08/19 06:13 Last Admin: 12/08/19 06:54 Dose: Not Given Documented by: Lactated Ringer's (Ringers, Lactated) Confirm Administered Dose 1,000 mls @ as directed .ROUTE .STK-MED ONE Stop: 12/08/19 08:36 Dextrose/Lactated Ringer's (Dextrose 5%-Lactated Ringers) 1,000 mls @ 125 mls/hr IV ASDIRECTED [facility] Stop: 12/08/19 18:06 Last Admin: 12/08/19 10:16 Dose: 125 mls/hr Documented by: Ketorolac Tromethamine (Toradol) Confirm Administered Dose 30 mg .ROUTE .STK-MED ONE Stop: 12/08/19 07:57 Ketorolac Tromethamine (Toradol) 30 mg IVPUSH Q6H [facility] Stop: 12/09/19 03:01 Last Admin: 12/09/19 08:03 Dose: 30 mg Documented by: Ketorolac Tromethamine (Toradol) Confirm Administered Dose 30 mg .ROUTE .STK-MED ONE Stop: 12/09/19 07:57 Last Admin: 12/09/19 11:38 Dose: Not Given Documented by: Metoclopramide HCl (Reglan) 10 mg IVPUSH ONETIME ONE Stop: 12/08/19 06:31 Last Admin: 12/08/19 06:56 Dose: 10 mg Documented by: Metoclopramide HCl (Reglan) Confirm Administered Dose 10 mg .ROUTE .STK-MED ONE Stop: 12/08/19 06:12 Last Admin: 12/08/19 06:54 Dose: Not Given Documented by: Miscellaneous Medication (Phenylephrine 1 Mg/10 Ml-Ns) Confirm Administered Dose 1 mg IV .STK-MED ONE Stop: 12/08/19 07:57 Miscellaneous Medication (Phenylephrine 1 Mg/10 Ml-Ns) Confirm Administered Dose 1 mg IV .STK-MED ONE Stop: 12/08/19 08:36 Morphine Sulfate (Duramorph Pf) Confirm Administered Dose 1 mg .ROUTE .STK-MED ONE Stop: 12/08/19 07:12 Ondansetron HCl (Zofran) Confirm Administered Dose 4 mg .ROUTE .STK-MED ONE Stop: 12/08/19 07:12 Ondansetron HCl (Zofran) 4 mg IVPUSH ONETIME PRN PRN Reason: Nausea/Vomiting Oxytocin (Pitocin) Confirm Administered Dose 10 unit .ROUTE .STK-MED ONE Stop: 12/08/19 07:12 Sodium Chloride (Saline Flush) 10 ml FLUSH ASDIRECTED PRN PRN Reason: Keep Vein Open
[2019-12-10] MEDS: Ferrous Sulfate 324 MG Tab.EC PO SCH (08:51)
[2019-12-10] MEDS: Docusate Sodium 100 MG Cap PO SCH (08:52)
[2019-12-10] MEDS: Prenatal Multivitamin with Calcium/Folic Acid/Iron Tab PO SCH (08:52)
== END 2019-12-10 09:32 | disposition home or self-care (01) | DRG 540 ==
LOC: JD.OB 04:56 → UNDOADMOB 04:56 → OBSVTOIN 05:03 → INTOOBSV 05:03 → JD.OB 05:03
PROVIDERS: ADMIT Obstetrics & Gynecology; ATTEND Obstetrics & Gynecology
PROC: 10D00Z1 Extraction of Products of Conception, Low, Open Approach (ICD-10-PCS; principal; 2019-12-08)
DX: O34.211 Maternal care for low transverse scar from previous cesarean delivery (principal); Z37.0 Single live birth; O99.02 Anemia complicating childbirth; D64.9 Anemia, unspecified; Z91.030 Bee allergy status; Z11.59 Encounter for screening for other viral diseases
CPT/HCPCS: 01961; 36415; 59025; 85025; 86592; 86850; 86900; 86901; A9270-GY; J0690; J1885; J2274; J2370; J2405; J2590; J2765; J3490; J7120; J7121; U0002

== ENCOUNTER 2024-07-27 18:21 | Inpatient (IN) | payer OTHER ==
[2024-07-27] MEDS ORDERED: Sodium Chloride 0.9% 10 ML Syringe FLUSH PRN (19:33)
[2024-07-27 19:43] LABS: APPEARANCE,URINE CLEAR (Clear); BILIRUBIN,URINE NEGATIVE (Negative); COLOR,URINE YELLOW (Yellow); GLUCOSE,URINE NEGATIVE (Negative); KETONES,URINE NEGATIVE (Negative); LEUKOCYTE ESTERASE,URINE 1+ (Negative); NITRITE,URINE NEGATIVE (Negative); OCCULT BLOOD,URINE TRACE-LYSED (Negative); PROTEIN,URINE NEGATIVE (Negative)
[2024-07-27 19:51] LABS: AMORPHOUS SEDIMENT,URINE MODERATE /hpf (NOT SEEN); BACTERIA,URINE FEW /hpf (FEW); MUCUS,URINE MODERATE /hpf (FEW); RBC,URINE 0-5 /hpf (0-5); SQUAMOUS EPITHELIAL CELLS,UR 0-5 /hpf (0-5)
[2024-07-27 20:06] LABS: BASOPHILS PERCENT AUTO 0.2 % (0.0-1.0); HEMATOCRIT 40.7 % (37.0-47.0); HEMOGLOBIN 13.4 gm/dl (12.0-16.0); IMMATURE GRAN ABSOLUTE AUTO 0.05 K/mm3 (0.00-0.05); IMMATURE GRAN PERCENT AUTO 0.5 % (0.0-0.4); LYMPHOCYTES ABSOLUTE AUTO 0.9 K/mm3 (1.0-4.8); LYMPHOCYTES PERCENT AUTO 9.5 % (24.0-44.0); MEAN CORPUSCULAR HEMOGLOBIN 28.2 pg (28.0-32.0); MEAN CORPUSCULAR HGB CONC 32.9 g/dl (32.0-36.0); MEAN CORPUSCULAR VOLUME 85.5 fl (83.0-99.0); MEAN PLATELET VOLUME 10.1 fl (9.4-12.3); MONOCYTES ABSOLUTE AUTO 0.1 K/mm3 (0.0-0.8); MONOCYTES PERCENT AUTO 1.2 % (0.0-8.0); NEUTROPHILS ABSOLUTE AUTO 8.6 K/mm3 (1.8-7.7); NEUTROPHILS PERCENT AUTO 88.6 % (41.0-71.0); PLATELET COUNT,PLT 310 K/mm3 (150-400); RED BLOOD CELL COUNT 4.76 M/mm3 (4.10-5.30); WHITE BLOOD CELL COUNT,WBC 9.71 K/mm3 (3.9-11.3)
[2024-07-27 20:27] LABS: A/G RATIO 1.2 (1-2); ALBUMIN 3.9 g/dl (3.4-5.0); ANION GAP 11.2 (5-15); BILIRUBIN TOTAL 1.5 mg/dL (0.2-1.0); BUN/CREATININE RATIO 22.5 (14-18); CALCIUM 9.3 mg/dL (8.5-10.1); CREATININE 0.8 mg/dL (0.55-1.02); EST CRCL DRUG DOSING (CG) 88.38 mL/min; POTASSIUM,K 4.2 mEq/L (3.5-5.1); PROTEIN TOTAL,TP 7.3 g/dl (6.4-8.2)
[2024-07-27] MEDS: Iopamidol 612 MG/ML 100 ML Bottle IVPUSH ONE (20:41)
[2024-07-27] MEDS: Sodium Chloride 0.9% 10 ML Syringe FLUSH PRN (20:41)
[2024-07-27] MEDS: Sodium Chloride 0.9% 1,000 ML IV ONE (20:42)
[2024-07-28] MEDS: Sodium Chloride 0.9% 1,000 ML IV ONE (00:03)
[2024-07-28] MEDS ORDERED: Morphine 4 MG/ML Syringe IVPUSH PRN (00:35)
[2024-07-28 00:37] LABS: CORONAVIRUS COVID-19 NAA NEGATIVE (NEGATIVE); INFLUENZA A NAA NEGATIVE (NEGATIVE); RESPIRATORY SYNCYTIAL VIR NAA NEGATIVE (NEGATIVE)
[2024-07-28] MEDS: Lactated Ringers 1,000 ML IV SCH (10:13)
[2024-07-28] MEDS: Diatrizoate Meglumine/Diatrizoate Sodium 37% 120 ML Bottle PO ONE ×2 (10:13→13:05)
[2024-07-28] MEDS: Ketorolac 15 MG/ML SDV IVPUSH PRN (20:18)
[2024-07-29] MEDS ORDERED: Simethicone 80 MG Tab.Chew PO PRN (08:04)
[2024-07-29] MEDS ORDERED: Acetaminophen 325 MG Tab PO PRN (12:59)
== END 2024-07-29 18:18 | disposition home or self-care (01) | DRG 390 ==
LOC: JD.ED 18:21 → JD.MS 23:37
PROVIDERS: ADMIT Surgery; ATTEND Surgery
DX: K56.609 Unspecified intestinal obstruction, unspecified as to partial versus complete obstruction (principal); R82.90 Unspecified abnormal findings in urine; K56.600 Partial intestinal obstruction, unspecified as to cause; G43.909 Migraine, unspecified, not intractable, without status migrainosus; F15.90 Other stimulant use, unspecified, uncomplicated; Z79.899 Other long term (current) drug therapy; Z79.1 Long term (current) use of non-steroidal anti-inflammatories (NSAID); Z91.030 Bee allergy status; Z90.49 Acquired absence of other specified parts of digestive tract; Z98.890 Other specified postprocedural states; Z98.891 History of uterine scar from previous surgery
CPT/HCPCS: 0241U; 36415; 74176; 74177; 80053; 81001; 83690; 84703; 85025; 87086; 96360; 96361; 99285; J1885; J7030; J7120; Q9963; Q9967

== ENCOUNTER 2024-08-26 08:01 | Day surgery (SDC) | payer OTHER ==
[~2024-08-26 08:01] MED LIST: Sodium Chloride 0.9% 10 ML Syringe FLUSH PRN; Sodium Chloride 0.9% 10 ML Syringe FLUSH SCH
[2024-08-26] MEDS: Lactated Ringers 1,000 ML IV SCH (08:20)
[2024-08-26] MEDS ORDERED: Lidocaine 1% 4 ML ONE (08:45)
[2024-08-26] MEDS ORDERED: Propofol 200 MG/20 ML SDV ONE ×2 (08:46)
[2024-08-26] MEDS ORDERED: Midazolam 1 MG/ML 2 ML SDV ONE (08:46)
== END 2024-08-26 10:00 | disposition home or self-care (01) ==
LOC: JD.SDS 08:01
PROVIDERS: ATTEND Surgery
DX: K56.609 Unspecified intestinal obstruction, unspecified as to partial versus complete obstruction (principal); N92.0 Excessive and frequent menstruation with regular cycle; Z91.030 Bee allergy status
CPT/HCPCS: 45378; 81025; J2003; J2250; J2704; J7120; 00811

== ENCOUNTER 2024-09-11 07:35 | Inpatient (IN) | payer OTHER ==
[~2024-09-11 07:35] MED LIST changes: +Bupivacaine 0.5% 30 ML SDV ONE; +EPINEPHrine 1 MG/ML SDV ONE; +Ketamine 200 MG/20 ML MDV ONE; +Midazolam 1 MG/ML 2 ML SDV ONE; -Sodium Chloride 0.9% 10 ML Syringe FLUSH SCH; +fentaNYL 250 MCG/5 ML SDV ONE; +propofoL 500 MG/50 ML 50 ML ONE
[2024-09-11] MEDS ORDERED: Ondansetron 4 MG/2 ML SDV ONE (07:36)
[2024-09-11] MEDS ORDERED: Lidocaine 1% 5 ML VIAL ONE (07:36)
[2024-09-11] MEDS ORDERED: Dexamethasone 4 MG/ML 5 ML MDV ONE (07:36)
[2024-09-11] MEDS ORDERED: Ketorolac 30 MG/ML SDV ONE (07:36)
[2024-09-11] MEDS ORDERED: Glycopyrrolate 0.2 MG/ML 2 ML SDV ONE (07:36)
[2024-09-11] MEDS ORDERED: dexmedeTOMIDine HCl 200 MCG/2 ML SDV ONE (07:36)
[2024-09-11] MEDS ORDERED: Sodium Chloride 0.9% 100 ML ONE (07:36)
[2024-09-11] MEDS ORDERED: Rocuronium 50 MG/5 ML Vial ONE ×3 (07:36→10:53)
[2024-09-11] MEDS ORDERED: Propofol 200 MG/20 ML SDV ONE (07:43)
[2024-09-11] MEDS: Lactated Ringers 1,000 ML IV SCH ×2 (08:05→19:29)
[2024-09-11] MEDS ORDERED: EPINEPHrine 1 MG/ML SDV ONE (08:29)
[2024-09-11] MEDS ORDERED: Lactated Ringers 1,000 ML ONE ×2 (08:49→10:53)
[2024-09-11] MEDS ORDERED: Ondansetron 4 MG/2 ML SDV IVPUSH PRN (08:50)
[2024-09-11] MEDS ORDERED: HYDROmorphone 0.5 MG/0.5 ML Syringe IVPUSH PRN (08:50)
[2024-09-11] MEDS ORDERED: propofoL 500 MG/50 ML 50 ML ONE ×2 (08:55→10:12)
[2024-09-11] MEDS: Bupivacaine 0.5% 30 ML SDV ONE (09:23)
[2024-09-11] MEDS ORDERED: HYDROmorphone 0.5 MG/0.5 ML Syringe ONE (10:22)
[2024-09-11] MEDS ORDERED: Sugammadex Sodium 200 MG/2 ML VIAL IV ONE (11:27)
[2024-09-11] MEDS: fentaNYL 100 MCG/2 ML SDV IVPUSH PRN (13:45)
[2024-09-11] MEDS: Sodium Chloride 0.9% 10 ML Syringe FLUSH SCH (14:39)
[2024-09-11] MEDS: Ketorolac 30 MG/ML SDV IVPUSH SCH (14:40)
[2024-09-11] MEDS: Benzocaine 20% Topical Spray UD MUCMEM ONE (14:40)
[2024-09-11] MEDS: HYDROmorphone 0.5 MG/0.5 ML Syringe IVPUSH PRN (16:22)
[2024-09-11] MEDS: Acetaminophen 325 MG Tab PO SCH (21:32)
[2024-09-12 04:52] LABS: BASOPHILS PERCENT AUTO 0.2 % (0.0-1.0); HEMATOCRIT 37.3 % (37.0-47.0); HEMOGLOBIN 12.3 gm/dl (12.0-16.0); IMMATURE GRAN ABSOLUTE AUTO 0.03 K/mm3 (0.00-0.05); IMMATURE GRAN PERCENT AUTO 0.2 % (0.0-0.4); LYMPHOCYTES ABSOLUTE AUTO 0.8 K/mm3 (1.0-4.8); LYMPHOCYTES PERCENT AUTO 6.5 % (24.0-44.0); MEAN CORPUSCULAR HEMOGLOBIN 28.1 pg (28.0-32.0); MEAN CORPUSCULAR VOLUME 85.2 fl (83.0-99.0); MEAN PLATELET VOLUME 10.9 fl (9.4-12.3); MONOCYTES ABSOLUTE AUTO 0.7 K/mm3 (0.0-0.8); MONOCYTES PERCENT AUTO 5.7 % (0.0-8.0); NEUTROPHILS ABSOLUTE AUTO 10.5 K/mm3 (1.8-7.7); NEUTROPHILS PERCENT AUTO 87.4 % (41.0-71.0); PLATELET COUNT,PLT 228 K/mm3 (150-400); RED BLOOD CELL COUNT 4.38 M/mm3 (4.10-5.30); WHITE BLOOD CELL COUNT,WBC 12.03 K/mm3 (3.9-11.3)
[2024-09-12 05:12] LABS: BUN/CREATININE RATIO 25.7 (14-18); CALCIUM 8.2 mg/dL (8.5-10.1); CREATININE 0.7 mg/dL (0.55-1.02); EST CRCL DRUG DOSING (CG) 101.01 mL/min
[2024-09-12] MEDS: Ondansetron 4 MG Tab.DIS PO PRN (09:05)
[2024-09-12] MEDS: Benzocaine 20% Oral Spray 59.2 ML Canister MUCMEM PRN (12:49)
[2024-09-12] MEDS: Benzocaine/Cetylpyridinium/Menthol Lozenge MUCMEM PRN (20:33)
[2024-09-13] MEDS: oxyCODONE 5 MG Tab PO PRN (08:23)
[2024-09-13] MEDS: D5 1/2 NS w/ 20 mEq/L KCl 1,000 ML IV SCH (08:43)
[2024-09-13] MEDS: Ketorolac 15 MG/ML SDV IVPUSH PRN (14:22)
== END 2024-09-14 11:42 | disposition home or self-care (01) | DRG 358 ==
LOC: JD.SDS 07:35 → JD.MS 13:05
PROVIDERS: ADMIT Surgery; ATTEND Surgery
PROC: 0DJD0ZZ Inspection of Lower Intestinal Tract, Open Approach (ICD-10-PCS; principal; 2024-09-11 09:15)
DX: K56.2 Volvulus (principal); K56.600 Partial intestinal obstruction, unspecified as to cause; K63.89 Other specified diseases of intestine; Z87.01 Personal history of pneumonia (recurrent); Z53.31 Laparoscopic surgical procedure converted to open procedure; Z98.890 Other specified postprocedural states; Z90.49 Acquired absence of other specified parts of digestive tract; Z90.10 Acquired absence of unspecified breast and nipple
CPT/HCPCS: 49000; J0171 ×2; J0665 ×2; J1100; J1596; J1885; J2003; J2250; J2405; J2704 ×4; J3010; J3490; J7120 ×3; 00840; 36415; 80048; 85025; 94761; A9270-GY; J3480

== ENCOUNTER 2024-09-16 18:26 | Inpatient (IN) | payer OTHER ==
[2024-09-16] MEDS ORDERED: Naloxone 0.4 MG/ML SDV IVPUSH PRN (19:30)
[2024-09-16 19:52] LABS: BASOPHILS ABSOLUTE AUTO 0.1 K/mm3 (0.0-0.2); BASOPHILS PERCENT AUTO 0.6 % (0.0-1.0); EOSINOPHILS ABSOLUTE AUTO 0.1 K/mm3 (0.0-0.4); EOSINOPHILS PERCENT AUTO 0.5 % (0.0-6.0); HEMATOCRIT 47.2 % (37.0-47.0); HEMOGLOBIN 15.8 gm/dl (12.0-16.0); IMMATURE GRAN ABSOLUTE AUTO 0.11 K/mm3 (0.00-0.05); IMMATURE GRAN PERCENT AUTO 1.1 % (0.0-0.4); LYMPHOCYTES ABSOLUTE AUTO 0.6 K/mm3 (1.0-4.8); LYMPHOCYTES PERCENT AUTO 6.3 % (24.0-44.0); MEAN CORPUSCULAR HEMOGLOBIN 27.7 pg (28.0-32.0); MEAN CORPUSCULAR HGB CONC 33.5 g/dl (32.0-36.0); MEAN CORPUSCULAR VOLUME 82.8 fl (83.0-99.0); MEAN PLATELET VOLUME 9.8 fl (9.4-12.3); MONOCYTES ABSOLUTE AUTO 0.6 K/mm3 (0.0-0.8); NEUTROPHILS ABSOLUTE AUTO 8.6 K/mm3 (1.8-7.7); NEUTROPHILS PERCENT AUTO 85.5 % (41.0-71.0); PLATELET COUNT,PLT 394 K/mm3 (150-400); WHITE BLOOD CELL COUNT,WBC 10.11 K/mm3 (3.9-11.3)
[2024-09-16] MEDS: Sodium Chloride 0.9% 1,000 ML IV SCH (19:53)
[2024-09-16] MEDS: fentaNYL 100 MCG/2 ML SDV IVPUSH ONE (19:53)
[2024-09-16] MEDS: Sodium Chloride 0.9% 10 ML Syringe FLUSH ONE ×2 (19:54→22:35)
[2024-09-16] MEDS: Sodium Chloride 0.9% 10 ML Syringe FLUSH PRN (19:54)
[2024-09-16] MEDS: Metoclopramide 10 MG/2 ML SDV IVPUSH ONE (19:54)
[2024-09-16 20:12] LABS: A/G RATIO 0.9 (1-2); ALBUMIN 3.9 g/dl (3.4-5.0); ANION GAP 15.7 (5-15); BILIRUBIN TOTAL 2.8 mg/dL (0.2-1.0); BUN/CREATININE RATIO 12.2 (14-18); C-REACTIVE PROTEIN 6.27 mg/dL (<0.30); CALCIUM 10.3 mg/dL (8.5-10.1); CREATININE 0.9 mg/dL (0.55-1.02); EST CRCL DRUG DOSING (CG) 80.09 mL/min; POTASSIUM,K 3.7 mEq/L (3.5-5.1); PROTEIN TOTAL,TP 8.2 g/dl (6.4-8.2)
[2024-09-16 20:14] LABS: LACTIC ACID 1.4 mmol/L (0.4-2.0)
[2024-09-16] MEDS: Iopamidol 612 MG/ML 100 ML Bottle IVPUSH ONE ×2 (20:28→22:35)
[2024-09-16] MEDS: Diatrizoate Meglumine/Diatrizoate Sodium 37% 120 ML Bottle PO ONE (22:35)
[2024-09-16] MEDS: Ondansetron 4 MG Tab.DIS PO PRN (22:47)
[2024-09-16] MEDS: Acetaminophen 325 MG Tab PO SCH (22:47)
[2024-09-16] MEDS: Ibuprofen 400 MG Tab PO SCH (22:48)
[2024-09-16] MEDS: Lactated Ringers 1,000 ML IV SCH (22:48)
[2024-09-16 22:51] LABS: APPEARANCE,URINE CLEAR (Clear); BILIRUBIN,URINE 1+ (Negative); COLOR,URINE YELLOW (Yellow); GLUCOSE,URINE NEGATIVE (Negative); KETONES,URINE 3+ (Negative); LEUKOCYTE ESTERASE,URINE 1+ (Negative); NITRITE,URINE NEGATIVE (Negative); OCCULT BLOOD,URINE 1+ (Negative); PROTEIN,URINE 1+ (Negative); UROBILINOGEN,URINE 0.2 (0.2-1.0)
[2024-09-16 23:11] LABS: RBC,URINE 0-5 /hpf (0-5); WBC,URINE 0-5 /hpf (0-5)
[2024-09-16 23:12] LABS: BACTERIA,URINE FEW /hpf (FEW); MUCUS,URINE FEW /hpf (FEW)
[2024-09-17] MEDS: Metoclopramide 10 MG Tab PO PRN (02:12)
[2024-09-17 05:42] LABS: HEMATOCRIT 43.6 % (37.0-47.0); HEMOGLOBIN 14.7 gm/dl (12.0-16.0); MEAN CORPUSCULAR HEMOGLOBIN 27.9 pg (28.0-32.0); MEAN CORPUSCULAR HGB CONC 33.7 g/dl (32.0-36.0); MEAN CORPUSCULAR VOLUME 82.7 fl (83.0-99.0); MEAN PLATELET VOLUME 9.7 fl (9.4-12.3); PLATELET COUNT,PLT 373 K/mm3 (150-400); RED BLOOD CELL COUNT 5.27 M/mm3 (4.10-5.30); WHITE BLOOD CELL COUNT,WBC 7.41 K/mm3 (3.9-11.3)
[2024-09-17 06:06] LABS: A/G RATIO 0.9 (1-2); ALBUMIN 3.4 g/dl (3.4-5.0); ANION GAP 11.8 (5-15); BILIRUBIN TOTAL 2.2 mg/dL (0.2-1.0); BUN/CREATININE RATIO 14.4 (14-18); CALCIUM 9.3 mg/dL (8.5-10.1); CREATININE 0.9 mg/dL (0.55-1.02); EST CRCL DRUG DOSING (CG) 80.09 mL/min; POTASSIUM,K 3.8 mEq/L (3.5-5.1); PROTEIN TOTAL,TP 7.2 g/dl (6.4-8.2)
[2024-09-17] MEDS: Ondansetron 4 MG/2 ML SDV IVPUSH ONE ×2 (07:34)
[2024-09-17] MEDS: Ondansetron 4 MG/2 ML SDV IVPUSH PRN (14:21)
[2024-09-17] MEDS: Simethicone 80 MG Tab.Chew PO PRN (16:45)
[2024-09-17] MEDS: Metoclopramide 10 MG/2 ML SDV IVPUSH PRN (18:54)
[2024-09-17] MEDS: Melatonin 3 MG Tab PO PRN (20:44)
[2024-09-18] MEDS: diphenhydrAMINE 50 MG/ML SDV IVPUSH PRN (04:16)
[2024-09-18] MEDS: Promethazine 25 MG Tab PO PRN (17:29)
[2024-09-19 04:40] LABS: BASOPHILS PERCENT AUTO 0.3 % (0.0-1.0); EOSINOPHILS ABSOLUTE AUTO 0.2 K/mm3 (0.0-0.4); EOSINOPHILS PERCENT AUTO 1.7 % (0.0-6.0); HEMATOCRIT 38.6 % (37.0-47.0); IMMATURE GRAN ABSOLUTE AUTO 0.12 K/mm3 (0.00-0.05); IMMATURE GRAN PERCENT AUTO 1.1 % (0.0-0.4); LYMPHOCYTES ABSOLUTE AUTO 2.1 K/mm3 (1.0-4.8); LYMPHOCYTES PERCENT AUTO 18.8 % (24.0-44.0); MEAN CORPUSCULAR HEMOGLOBIN 27.9 pg (28.0-32.0); MEAN CORPUSCULAR HGB CONC 33.2 g/dl (32.0-36.0); MEAN CORPUSCULAR VOLUME 84.3 fl (83.0-99.0); MONOCYTES PERCENT AUTO 9.3 % (0.0-8.0); NEUTROPHILS ABSOLUTE AUTO 7.6 K/mm3 (1.8-7.7); NEUTROPHILS PERCENT AUTO 68.8 % (41.0-71.0); PLATELET COUNT,PLT 369 K/mm3 (150-400); RED BLOOD CELL COUNT 4.58 M/mm3 (4.10-5.30); WHITE BLOOD CELL COUNT,WBC 11.09 K/mm3 (3.9-11.3)
[2024-09-19 04:43] LABS: HEMOGLOBIN 12.8 gm/dl (12.0-16.0)
[2024-09-19 05:01] LABS: A/G RATIO 0.9 (1-2); ANION GAP 14.7 (5-15); BILIRUBIN DIRECT 0.3 mg/dl (0.0-0.2); BILIRUBIN TOTAL 1.6 mg/dL (0.2-1.0); BUN/CREATININE RATIO 28.6 (14-18); CALCIUM 8.5 mg/dL (8.5-10.1); CREATININE 0.7 mg/dL (0.55-1.02); EST CRCL DRUG DOSING (CG) 101.01 mL/min; POTASSIUM,K 3.7 mEq/L (3.5-5.1); PROTEIN TOTAL,TP 6.3 g/dl (6.4-8.2)
== END 2024-09-19 16:02 | disposition home or self-care (01) | DRG 390 ==
LOC: JD.ED 18:26 → JD.MS 09-17 06:50
PROVIDERS: ADMIT Surgery; ATTEND Surgery
DX: I10 Essential (primary) hypertension (principal); K91.30 Postprocedural intestinal obstruction, unspecified as to partial versus complete; G43.909 Migraine, unspecified, not intractable, without status migrainosus; D64.9 Anemia, unspecified; J98.2 Interstitial emphysema; Z86.16 Personal history of COVID-19; Z90.49 Acquired absence of other specified parts of digestive tract; Z98.890 Other specified postprocedural states; Z91.030 Bee allergy status; Z79.899 Other long term (current) drug therapy; Z98.891 History of uterine scar from previous surgery
CPT/HCPCS: 36415; 71260; 71260-26; 74177; 74177-26; 80053; 81001; 82248; 83605; 83690; 85025; 85027; 86140; 87040; 87086; 94761; 99284; A9270-GY; J1200; J2405; J2765; J3010; J7030; J7120; Q0169; Q9963; Q9967